=== PATIENT | male | born 2000 | race Caucasian/White ===

== ENCOUNTER 2022-02-16 11:59 | Outpatient (CLI) | payer OTHER, SELFPAY ==
[2022-02-16 13:49] LABS: Chloride* 100 mmol/L (96-114); Potassium* 4.8 mmol/L (3.6-5.1); Sodium* 139 mmol/L (135-149)
[2022-02-16 13:51] LABS: Cholesterol* 181 mg/dL (90-199)
[2022-02-16 13:52] LABS: Blood Urea Nitrogen* 12 mg/dL (5-24); Calcium* 10.2 mg/dL (8.4-10.6); Carbon Dioxide* 27 mmol/L (20-32); Creatinine* 0.9 mg/dL (0.5-1.5); Estimated Glomerular Filt Rate 125 ml/min; Glucose* 96 mg/dL (60-115); Triglycerides* 82 mg/dL (40-149)
[2022-02-16 13:53] LABS: HDL Cholesterol* 54 mg/dL (>=40); LDL Cholesterol Calculated 111 mg/dL (<100)
[2022-02-16 14:23] LABS: Thyroid Stimulating Hormone* 0.945 uIU/mL (0.270-4.20)
[2022-02-16 14:33] LABS: HIV 1/2/P24 Combo Screen* Negative (Negative)
[2022-02-16 16:12] LABS: Chlamydia DNA Amplified* NOT DETECTED (No Detected); GC DNA Amplified* NOT DETECTED (No Detected)
[2022-02-17 17:29] LABS: Rapid Plasma Reagin (RPR) Non Reactive (Non Reactive)
== END 2022-02-16 12:00 | disposition home or self-care (01) ==
PROVIDERS: PCP Family Medicine; Visit Provider Family Medicine
DX: Z00.00 Encounter for general adult medical examination without abnormal findings (principal); R10.9 Unspecified abdominal pain; R63.4 Abnormal weight loss; Z11.3 Encounter for screening for infections with a predominantly sexual mode of transmission; Z13.6 Encounter for screening for cardiovascular disorders
CPT/HCPCS: 80048; 80061; 83516; 84443; 86592; 86703; 87491; 87591

== ENCOUNTER 2022-06-29 10:56 | Outpatient (CLI) | payer OTHER, SELFPAY ==
[2022-06-29 12:12] LABS: Chloride* 105 mmol/L (96-114); Sodium* 141 mmol/L (135-149)
[2022-06-29 12:13] LABS: Potassium* 4.5 mmol/L (3.6-5.1)
[2022-06-29 12:15] LABS: Blood Urea Nitrogen* 10 mg/dL (5-24); Carbon Dioxide* 30 mmol/L (20-32); Creatinine* 0.8 mg/dL (0.5-1.5); Estimated Glomerular Filt Rate 128 ml/min
[2022-06-29 12:16] LABS: Calcium* 10.3 mg/dL (8.4-10.6); Glucose* 83 mg/dL (60-115)
== END 2022-06-29 10:57 | disposition home or self-care (01) ==
LOC: NFLDREF 10:57
PROVIDERS: PCP Family Medicine; Visit Provider Family Medicine
DX: Z00.00 Encounter for general adult medical examination without abnormal findings (principal); Z13.9 Encounter for screening, unspecified
CPT/HCPCS: 80048

== ENCOUNTER 2023-02-01 11:34 | Outpatient (CLI) | payer OTHER, SELFPAY ==
[2023-02-01 14:54] LABS: Chlamydia DNA Amplified* NOT DETECTED (No Detected); GC DNA Amplified* NOT DETECTED (No Detected)
== END 2023-02-01 11:35 | disposition home or self-care (01) ==
PROVIDERS: PCP Family Medicine; Visit Provider Family Medicine
DX: Z11.3 Encounter for screening for infections with a predominantly sexual mode of transmission (principal)
CPT/HCPCS: 86592; 86703; 87491; 87591

== ENCOUNTER 2023-10-24 08:33 | Outpatient (CLI) | payer OTHER, SELFPAY | END 2023-10-24 08:34 | disposition home or self-care (01) | PROVIDERS: PCP Physician Assistant Medical; Visit Provider Physician Assistant Medical | DX: Z00.00 Encounter for general adult medical examination without abnormal findings (principal); Z11.3 Encounter for screening for infections with a predominantly sexual mode of transmission | CPT/HCPCS: 80053; 86592; 86703; 86706; 86803; 87340; 87491; 87591 ==